=== PATIENT | male | born 1960 | race Caucasian/White ===

== ENCOUNTER 2016-08-12 20:27 | Emergency (ER) | payer MEDICARE ==
[2016-08-12 20:48] VITALS: BP 143/85; PULSE 82; O2SAT 97
[2016-08-12] MEDS ORDERED: Naprosyn 500 MG PO ONE (20:58)
--- NOTE | 2016-08-12 20:58 | ERPHSYRPT ---
- History of Present Illness Time Seen by Provider: 08/12/16 20:54 Source: patient Exam Limitations: no limitations Physician History: 55-year-old male recently underwent arthroscopic surgery by Dr. Mcgarry at [facility] came with some suprapatellar swelling on his left knee. Patient denies any pain, redness or any fall or any recent injuries. Patient states that when he walks more the swelling goes down. He denies any fever, chills, nausea, vomiting. Associated Symptoms: none Allergies/Adverse Reactions: No Known Drug Allergies Allergy (Verified 12/18/11 21:39) Home Medications: No Home Meds 12/18/11 [History] Hx Tetanus, Diphtheria Vaccination/Date Given: No (WITHIN 4-5 YRS.) Hx Influenza Vaccination/Date Given: No Hx Pneumococcal Vaccination/Date Given: No - Review of Systems Constitutional: No Symptoms Musculoskeletal: Joint Swelling - Past Medical History Pertinent Past Medical History: No - Past Surgical History Past Surgical History: Yes Neuro Surgical History: No Pertinent History Cardiac: No Pertinent History Respiratory: No Pertinent History Gastrointestinal: No Pertinent History Genitourinary: No Pertinent History Musculoskeletal: Other Male Surgical History: No Pertinent History Other Surgical History: EYE. KNEE - Social History Smoking Status: Current every day smoker How long have you smoked: 35 YRS. Exposure to second hand smoke: No Drug Use: none Patient Lives Alone: Yes - Nursing Vital Signs Nursing Vital Signs: Initial Vital Signs Temperature 97.3 F Temperature Source Oral Pulse Rate 82 Respiratory Rate 18 Blood Pressure [Right Arm] 143/85 Pain Intensity 2 - Physical Exam General Appearance: no apparent distress Knees Exam: left knee: normal range of motion, joint effusion SpO2: 97 Oxygen Delivery: Room Air - Course Nursing assessment & vital signs reviewed: Yes - Progress Progress: improved Counseled pt/family regarding: diagnosis, need for follow-up - Departure Time of Disposition: 20:56 Departure Disposition: Home Clinical Impression: Knee joint effusion Qualifiers: Laterality: left Qualified Code(s): M25.462 - Effusion, left knee Condition: Stable Critical Care Time: No Referrals: HARJINDER PANIAGUA [Primary Care Provider] - Instructions: Knee Effusion Additional Instructions: Please follow the instructions given to you. Please take your medication as prescribed if given. If symptoms recur or get worse, come back to the emergency room if you cannot reach your primary care physician, or call your primary care physician for an appointment. Again if your symptoms get worse, come back to the emergency room. Thanks for visiting emergency room, and let us take care of you. Prescriptions: Naproxen 375 mg [Naprosyn 375 mg] 375 mg PO Q8H #20 tablet
== END 2016-08-12 21:20 | disposition home or self-care (01) ==
LOC: ED 20:27
DX: M25.462 Effusion, left knee (principal); Z98.890 Other specified postprocedural states
CPT/HCPCS: 99281; A9270-GY

== ENCOUNTER 2020-01-06 12:37 | Emergency (ER) | payer MEDICARE ==
--- NOTE | 2020-01-06 13:15 | ERPHSYRPT ---
- History of Present Illness Source: patient Patient Subjective Stated Complaint: pt here for possible indection to right bakari hubbard, pt has knee replaced 2 weeks ago,no fever Triage Nursing Assessment: pt alert, walked in on crutched, has bandage to right knee. pt has swelling warmth to knee, shaun in tach, incision well approcimate, no drainage Physician History: 59 yo wm s/p R knee replacement 15 days ago presents w mild erythema around incision. [place] still in place, and he has an appointment tomorrow w orthopod to have them removed. Pt denies fever/drainage/increasing pain. Pt demanded an XR of knee. Method of Injury: incised (R knee replacement) Occurred: other (Knee replacement 15 days ago) Severity of Pain-Max: mild Severity of Pain-Current: mild Lower Extremities Pain: knee: right Modifying Factors: Improves With: nothing Associated Symptoms: none Allergies/Adverse Reactions: No Known Drug Allergies Allergy (Verified 01/06/20 12:56) Home Medications: Hydrocodone Bit/Acetaminophen [Vicodin 5-500 Tablet] 1 each PO Q4HPRN PRN 01/06/20 [History] Hx Tetanus, Diphtheria Vaccination/Date Given: No (WITHIN 4-5 YRS.) Hx Influenza Vaccination/Date Given: No Hx Pneumococcal Vaccination/Date Given: No Immunizations Up to Date: Yes Travel Risk - International Travel Have you traveled outside of the country in past 3 weeks: No - Coronavirus Screening Are you exhibiting any of the following symptoms?: No Close contact with a COVID-19 positive Pt in past 14-21 Days: No - Review of Systems Constitutional: No Symptoms Eyes: No Symptoms Ears, Nose, & Throat: No Symptoms Respiratory: No Symptoms Cardiac: No Symptoms Abdominal/Gastrointestinal: No Symptoms Genitourinary Symptoms: No Symptoms Musculoskeletal: Joint Pain Skin: Other (Mild erythema) Neurological: No Symptoms Psychological: No Symptoms Endocrine: No Symptoms Hematologic/Lymphatic: No Symptoms Immunological/Allergic: No Symptoms - Past Medical History Pertinent Past Medical History: No Neurological History: No Pertinent History ENT History: No Pertinent History Cardiac History: No Pertinent History Respiratory History: No Pertinent History Endocrine Medical History: No Pertinent History GI Medical History: No Pertinent History History: No Pertinent History Psycho-Social History: No Pertinent History Male Reproductive Disorders: No Pertinent History - Past Surgical History Past Surgical History: Yes Neuro Surgical History: No Pertinent History Cardiac: No Pertinent History Respiratory: No Pertinent History Gastrointestinal: No Pertinent History Genitourinary: No Pertinent History Musculoskeletal: Other Male Surgical History: No Pertinent History Other Surgical History: EYE. KNEE - Social History Smoking Status: Current every day smoker How long have you smoked: 35 YRS. Exposure to second hand smoke: No Drug Use: none Patient Lives Alone: Yes Significant Family History: no pertinent family hx - Nursing Vital Signs Nursing Vital Signs: Initial Vital Signs Respiratory Rate 18 01/06/20 13:56 Blood Pressure 132/83 01/06/20 13:56 O2 Sat by Pulse Oximetry 98 01/06/20 13:56 Pain Scale Pain Intensity 7 - Physical Exam General Appearance: no apparent distress Eyes, Ears, Nose, Throat Exam: normal ENT inspection, TMs normal, pharynx normal Neck Exam: normal inspection Cardiovascular/Respiratory Exam: normal breath sounds, regular rate/rhythm, heart sounds normal Gastrointestinal/Abdominal Exam: non-tender Back Exam: normal inspection Hips Exam: bilateral: non-tender, normal inspection, normal range of motion Legs Exam: bilateral leg: non-tender, normal inspection, normal range of motion, no evidence of injury Knees Exam: right knee: other (R knee incision intact w shaun/Very mild erythema in medial part of incision/no drainage/Normal post-op edema) Ankle Exam: bilateral ankle: non-tender, normal inspection, normal range of motion Foot Exam: bilateral foot: non-tender, normal inspection, normal range of motion, no evidence of injury Neuro/Tendon Exam: normal sensation, normal motor functions, normal tendon functions, responds to pain Mental Status Exam: alert, oriented x 3, cooperative Skin Exam: warm, dry, No rash - Radiology Exams Knee X-ray Interpretation: Interpreted by me (Prosthesis intact) Ordered Tests: Active Orders 24 hr Category Date Time Status KNEE (1 OR 2 VIEW) Stat Exams 01/06/20 13:22 Completed - Progress Progress: unchanged Counseled pt/family regarding: rad results - Departure Departure Disposition: Home Clinical Impression: Encounter for postoperative wound check Condition: Stable Critical Care Time: No Referrals: SERGEI TOLENTINO [Primary Care Provider] - Instructions: Surgical Wound (DC) Additional Instructions: Follow up with your orthopedic surgeon in AM Start Doxycycline Return to ER for increased redness/swelling/temperature greater than 100.5 Prescriptions: Doxycycline Monohydrate 100 mg PO BID #14 tablet
--- NOTE | 2020-01-06 13:29 | XRAY ---
Indication: Postop pain. Comparison: None AP/lateral right knee demonstrates total knee arthroplasty, nonspecific effusion, and anterior soft tissue swelling with cutaneous shaun. No other bony, articular, or soft tissue abnormalities.
[2020-01-06 13:59] VITALS: BP 132/83; O2SAT 98
== END 2020-01-06 14:10 | disposition home or self-care (01) ==
LOC: ED 12:37
DX: Z48.89 Encounter for other specified surgical aftercare (principal); M25.461 Effusion, right knee; Z96.651 Presence of right artificial knee joint
CPT/HCPCS: 73560; 99283